=== PATIENT | female | born 1965 | race Caucasian/White ===

== ENCOUNTER 2021-09-10 13:21 | Emergency (ER) | payer OTHER ==
[~2021-09-10] VITALS: Ht 172.7 cm; Wt 70.0 kg
[2021-09-10 14:40] VITALS: BP 144/83
--- NOTE | 2021-09-10 14:45 | PHYS DOC ---
Past History Past Surgical History: Appendectomy Alcohol Use: Occasionally General Adult EDM: Chief Complaint: ANKLE PROBLEM HPI: HPI: Patient is a 56-year-old female coming in for left ankle pain and swelling. Patient states she was walking down a ramp carrying a bucket when her left leg went behind her. Has been able to ambulate with pain. Review of Systems: Review of Systems: All other systems within normal limits except for as noted in the HPI Allergies: Allergies: Allergies Coded Allergies Type Severity Reaction Last Updated Verified No Known Drug Allergies 09/10/21 No Physical Exam: PE: Constitutional: Well developed, well nourished, no acute distress, non-toxic appearance. [] HENT: Normocephalic, atraumatic, bilateral external ears normal, nose normal. [] Eyes: PERRLA, conjunctiva normal, no discharge. [] Neck: No rigidity, supple, no stridor. [] Cardiovascular: Regular rate and rhythm, brisk cap refill [] Lungs & Thorax: Non labored symmetric respirations, no tachypnea or respiratory distress [] Abdomen: Soft, nondistended. Skin: Warm, dry, no erythema, no rash. [] Back: Unremarkable Extremities: No deformities, range of motion grossly intact, no lower extremity edema. Left ankle tenderness and swelling, no calcaneus or fifth metatarsal tenderness. [] Neurologic: Alert and oriented X 3, no focal deficits noted. [] Psychologic: Affect normal, judgement normal, mood normal. [] Current Patient Data: Vital Signs: Vital Signs Date Time Temp Pulse Resp B/P (MAP) Pulse Ox O2 Delivery O2 Flow Rate FiO2 09/10/21 14:40 86 18 144/83 (103) 97 Room Air 09/10/21 14:11 98.2 EKG: EKG: [] Radiology/Procedures: Radiology/Procedures: [address] [address] IMAGING REPORT Signed PATIENT: ESTRADA MARKS ACCOUNT: [id number] : 1965 LOCATION: ER AGE: 56 SEX: F EXAM STATUS: REG ER ORD. PHYSICIAN: RICARDO WILSON MD REASON: INJURY PROCEDURE: ANKLE LEFT 3V AP, lateral, and oblique views of the left ankle were obtained. History: Reason: INJURY / Spl. Instructions: / History: Comparison: none. No fracture, dislocation, or soft tissue swelling is seen. The mortise is intact and there is no widening of the distal tibiofibular space. Impression: 1. Unremarkable plain film exam of the left ankle. Electronically signed by: Reinaldo Tracy MD (09/10/2021 2:43 PM) [facility] DICTATED AND SIGNED BY: REINALDO TRACY MD DATE: 09/10/21 1443 CC: RICARDO WILSON MD; MARILYN MORENO MD ~MTH0 0 [] Heart Score: C/O Chest Pain: No Risk Factors: Risk Factors: DM, Current or recent (<one month) smoker, HTN, HLP, family history of CAD, obesity. Risk Scores: Score 0 - 3: 2.5% MACE over next 6 weeks - Discharge Home Score 4 - 6: 20.3% MACE over next 6 weeks - Admit for Clinical Observation Score 7 - 10: 72.7% MACE over next 6 weeks - Early Invasive Strategies Course & Med Decision Making: Course & Med Decision Making Pertinent Labs and Imaging studies reviewed. (See chart for details) [] Dragon Disclaimer: Dragon Disclaimer: This electronic medical record was generated, in whole or in part, using a voice recognition dictation system. Departure Departure: Impression: Primary Impression: Left ankle sprain Disposition: HOME / SELF CARE / HOMELESS Condition: STABLE Referrals: MARILYN MORENO MD (PCP) Patient Instructions: RICE - Routine Care for Injuries RICARDO WILSON MD Sep 10, 2021 14:45
== END 2021-09-10 15:11 | disposition home or self-care (01) ==
LOC: ER 13:21
DX: S93.402A Sprain of unspecified ligament of left ankle, initial encounter (principal); X50.9XXA Other and unspecified overexertion or strenuous movements or postures, initial encounter; Y93.01 Activity, walking, marching and hiking; Y92.89 Other specified places as the place of occurrence of the external cause; Y99.8 Other external cause status
CPT/HCPCS: 73610; 99283